=== PATIENT | female | born 1980 | race Caucasian/White ===

== ENCOUNTER 2023-05-18 17:41 | Emergency (ER) | payer MEDICAID ==
[2023-05-18] MEDS ORDERED: Amoxicillin/Clavulanate K 875-125 MG Tab ONE (18:00)
== END 2023-05-18 18:11 | disposition home or self-care (01) ==
LOC: LB.ED 17:41
DX: S02.5XXA Fracture of tooth (traumatic), initial encounter for closed fracture (principal)
CPT/HCPCS: 99282; A9270-GY